=== PATIENT | female | born 1990 | race Caucasian/White ===

== ENCOUNTER → 2021-10-24 07:27 | Outpatient (CLI) | payer OTHER ==
[~2021-10-24 07:27] MED LIST: ADVAIR 100-501 EACH; COMBIVENT RESPIM4 GM; GILTUSS TR TAB1 EACH PO; PROVENTIL S1 ML/5 MG; SINGULAIR10 MG; SINGULAIR10 MG PO; ZITHROMAX TRI-500 MG PO; ZYRTEC10 MG PO
== END | disposition home or self-care (01) ==
LOC: NUCLEAR 07:27
PROVIDERS: ATTEND Internal Medicine Gastroenterology
DX: R11.2 Nausea with vomiting, unspecified (principal)

== ENCOUNTER 2023-03-05 13:42 | Emergency (ER) | payer OTHER ==
[~2023-03-05] VITALS: Ht 160 cm; Wt 119.7 kg
[2023-03-05] MEDS ORDERED: CARAFATE1 GM/10 ML PO (17:29)
== END 2023-03-05 17:41 | disposition home or self-care (01) ==
LOC: ER 13:42
DX: K29.00 Acute gastritis without bleeding (principal); K76.0 Fatty (change of) liver, not elsewhere classified; R16.0 Hepatomegaly, not elsewhere classified

== ENCOUNTER 2023-06-25 08:04 | Outpatient (CLI) | payer OTHER ==
[~2023-06-25 08:04] MED LIST changes: +CARAFATE1 GM/10 ML PO
== END 2023-06-25 08:11 | disposition home or self-care (01) ==
LOC: NUCLEAR 08:04
PROVIDERS: ATTEND Internal Medicine Gastroenterology
DX: R68.81 Early satiety (principal)